=== PATIENT | female | born 1960 | race African-American/Black ===

== ENCOUNTER 2017-06-23 17:18 | Inpatient (IN) | payer OTHER ==
[~2017-06-23] VITALS: Ht 154.9 cm; Wt 77.1 kg
--- NOTE | 2017-06-23 17:18 | NUR ---
Patient BIBA ACLS, transferred to bed 8. RN evaluating patient at bedside.
[2017-06-23 17:19] VITALS: BP 157/100
--- NOTE | 2017-06-23 17:20 | NUR ---
57 /M BIBA FROM HOME C/O RIGHT SIDED CHEST PAIN AND TOE PAIN X 1 WK; WORST X TODAY. HX OF HTN, ASTHMA.DENIES N/V/D; SKIN IS PINK/WARM/DRY; AAOX4 WITH EVEN AND STEADY GAIT; LUNGS CLEAR BL; PATIENT STATES PAIN OF 5/10 AT THIS TIME; VSS; PATIENT POSITIONED FOR COMFORT; HOB ELEVATED; BEDRAILS UP X2; BED DOWN. ER MD MADE AWARE OF PT STATUS.
[2017-06-23] MEDS ORDERED: AMLO10TA PO (17:25)
--- NOTE | 2017-06-23 17:34 | NUR ---
Patient being evaluated by DR MUSTAFA at bedside.
[2017-06-23] MEDS ORDERED: NITROGLYCERIN 2% 1 GM PKT TP ONE (17:50)
[2017-06-23] MEDS ORDERED: ASPIRIN 81 MG TAB.CHEW PO ONE (17:50)
[2017-06-23] MEDS ORDERED: KETOROLAC 30 MG/ML VIAL IVP ONE (17:50)
[2017-06-23] MEDS ORDERED: LORazepam 2 MG/ML VIAL IVP ONE (17:50)
--- NOTE | 2017-06-23 18:05 | NUR ---
head of academic technology at bedside.
--- NOTE | 2017-06-23 18:31 | NUR ---
X RAY AT BEDSIDE.
[2017-06-23 18:37] LABS: BASOPHILS # (AUTO) 0.3 K/uL (0.00-0.22); EOSINOPHILS # (AUTO) 0.1 K/uL (0-0.4)
[2017-06-23 18:41] LABS: BASOPHILS % (AUTO) 4.4 % (0.0-2.0); EOSINOPHILS % (AUTO) 0.9 % (0.0-4.0); HEMATOCRIT 43.9 % (36-48); HEMOGLOBIN 14.6 g/dL (12.0-16.0); LYMPHOCYTES # (AUTO) 2.8 K/uL (2.5-16.5); LYMPHOCYTES % (AUTO) 43.1 % (20.5-51.1); MEAN CORPUSCULAR HEMOGLOBIN 29 pg (27-31); MEAN CORPUSCULAR HGB CONC 33 g/dL (33-37); MEAN CORPUSCULAR VOLUME 87 fL (80-94); MONOCYTES # (AUTO) 0.4 K/uL (0.8-1.0); MONOCYTES % (AUTO) 6.8 % (1.7-9.3); NEUTROPHILS # (AUTO) 2.9 K/uL (1.8-7.7); NEUTROPHILS % (AUTO) 44.8 % (42.2-75.2); PLATELET COUNT (AUTO) 236 K/uL (140-450); RED BLOOD CELL COUNT(AUTO) 5.06 MIL/uL (4.20-5.40); RED CELL DISTRIBUTION WIDTH 12.4 % (11.6-13.7); WHITE BLOOD COUNT (AUTO) 6.5 K/uL (4.8-10.8)
[2017-06-23 18:44] LABS: ANION GAP 14.7 (8-16); CARBON DIOXIDE 23.5 mmol/L (21-32); POTASSIUM 3.2 mmol/L (3.5-5.1)
[2017-06-23 18:47] LABS: PROTHROMBIN TIME 10.3 secs (10.8-13.4)
[2017-06-23 18:50] LABS: ALBUMIN 3.5 g/dL (3.4-5.0); TOTAL BILIRUBIN 0.2 mg/dL (0.0-1.0)
--- NOTE | 2017-06-23 19:00 | NUR ---
RECEIVED REPORT FROM MORENITA RN, PT RESTING COMFORTABLY ON BED, NO ACUTE CHANGES AT THIS TIME, VSS, ALL NEEDS MET AT THIS TIME
[2017-06-23 20:35] LABS: BARBITURATE, URINE NEG. ng/ml (NEG <=200); BENZODIAZEPINE, URINE NEG. ng/mL (NEG <=200); CANNABINOID, URINE NEG. ng/mL (NEG <=50); COCAINE, URINE NEG. ng/mL (NEG <=300); OPIATE, URINE NEG. ng/mL (NEG <=2000); PHENCYCLIDINE SCREEN,URINE NEG. ng/mL (NEG <=25)
[2017-06-23] MEDS ORDERED: NACL 0.9% 500 ML IV ONE ×2 (20:35)
[2017-06-23] MEDS ORDERED: POTASSIUM CHLORIDE 10 MEQ TABER PO ONE (20:45)
[2017-06-23] MEDS ORDERED: CITA40TA13 PO (21:28)
[2017-06-23] MEDS ORDERED: OXYC40TE66 PO (21:28)
[2017-06-23] MEDS ORDERED: QUET100T PO (21:28)
--- NOTE | 2017-06-23 22:00 | NUR ---
Patient will be admitted to care of [facility]. Admited to TELE. Will go to room 112B. Belongings list completed. Report to NYDIA JOHNSON. VSS, PT STABLE, TRANSPORTED WITH CARDIAC MONITORING, IV BRUNO LEWIS.
[2017-06-23] MEDS ORDERED: MORPHINE SULFATE 2 MG/ML SYR IVP PRN (22:05)
[2017-06-23] MEDS ORDERED: HYDROcodone/APAP 10/325 MG 1 TAB TAB PO PRN (22:05)
[2017-06-23] MEDS ORDERED: ACETAMINOPHEN EXTRA STRENGTH 500 MG TAB PO PRN (22:05)
--- NOTE | 2017-06-23 22:05 | NUR ---
PT ARRIVED ON UNIT VIA GURNEY ACCOMPANIED BY SEED PRODUCTION FIELD SUPERVISOR AND VET TECH. PT IS A/OX4 ON ROOM AIR. SHE IS AMBULATORY AND SKIN IS INTACT. PT HAS A 20G IV TO THE LEFT AC WITH NS@100ML/HR. CONNECTED PT TO TELE MONITOR AND ORIENTED PT TO ROOM, RESTROOM, LIGHTS, CALL LIGHT. UPDATED BOARD. DISCUSSED PLAN OF CARE WITH PT, PT VERBALIZED UNDERSTANDING. PT IN STABLE CONDITION, VITAL SIGNS WNL, NO SIGNS OF DISTRESS NOTED. BED IN LOW POSITION, CALL LIGHT WITHIN REACH. WILL CONTINUE TO MONITOR.
[2017-06-23] MEDS ORDERED: LORazepam 1 MG TAB PO PRN (22:10)
[2017-06-23] MEDS ORDERED: cloNIDine 0.1 MG TAB PO PRN (22:10)
[2017-06-23] MEDS ORDERED: POTASSIUM CHLORIDE 20% 40 MEQ/15 ML UDC PO PRN (22:15)
[2017-06-23 22:33] VITALS: BP 123/73
[2017-06-23] MEDS ORDERED: PNEUMOCOCCAL VACCINE 23 MCG/0.5 ML VIAL IMVAC PRN (22:55)
[2017-06-23] MEDS ORDERED: INFLUENZA VIRUS VACCINE QUAD 0.5 ML SYR IMVAC PRN (22:55)
[2017-06-24] VITALS: BP 122/75
--- NOTE | 2017-06-24 00:35 | NUR ---
ADMINISTERED POTASSIUM PT TOLERATED WELL. PT IN STABLE CONDITION, VITAL SIGNS WNL, NO SIGNS OF DISTRESS NOTED. BED IN LOW POSITION, CALL LIGHT WITHIN REACH. WILL CONTINUE TO MONITOR.
[2017-06-24 04:00] VITALS: BP 114/68
--- NOTE | 2017-06-24 07:10 | NUR ---
ENDORSED PT TO DAY SHIFT RN FOR CONTINUITY OF CARE. PT IN STABLE CONDITION.
--- NOTE | 2017-06-24 07:30 | NUR ---
REPORT RECEIVED FROM SOURCING COORDINATOR, PT SLEEPING QUIETLY IN NAD, RESP EVEN UNLABORED, SKIN WARM DRY COLOR WNL FOR RACE, PT AROUSES TO VOICE, NO C/O PAIN OR DISCOMFORT, PLAN OF CARE REVIEWED, CALL MORIRS WITHIN REACH, SIDE RAILS UP, WILL CONTINUE TO MONITOR.
[2017-06-24 08:00] VITALS: BP 115/70
--- NOTE | 2017-06-24 08:55 | NUR ---
PATIENT HAS BEEN SCREENED AND CATEGORIZED MODERATE NUTRITION RISK. PATIENT WILL BE SEEN WITHIN 3-5 DAYS OF ADMISSION. 06/26/17-06/28/[address]
[2017-06-24] MEDS ORDERED: amLODIPine 5 MG TAB PO SCH (09:00)
[2017-06-24] MEDS ORDERED: oxyCODONE 40 MG TABER PO SCH (09:00)
[2017-06-24] MEDS ORDERED: CITALOPRAM 20 MG TAB PO SCH (09:00)
[2017-06-24] MEDS ORDERED: QUEtiapine FUMARATE 100 MG TAB PO SCH (09:00)
--- NOTE | 2017-06-24 09:13 | NUR ---
DUE MEDS GIVEN, PT TEGAN WELL, NO C/O PAIN OR DISCOMFORT, PT DENIES ANY IMMEDIATE NEEDS, WILL CONTINUE TO MONITOR.
[2017-06-24 12:00] VITALS: BP 112/76
[2017-06-24] MEDS ORDERED: NAPR500T1 PO (13:19)
--- NOTE | 2017-06-24 13:30 | NUR ---
PATIENT IS ASLEEP COMFORTABLE. RESPIRATION IS EVEN, UNLABOR, NO DISTRESS WAS NOTED. CALL LIGHT WITHIN REACH. WILL CONTINUE TO MONITOR.
--- NOTE | 2017-06-24 13:35 | NUR ---
CM NOTE INITIAL REVIEW FAXED TO [facility] [phone] MAXIMILIAN LATHAMA PH# [phone]
--- NOTE | 2017-06-24 14:15 | NUR ---
PATIENT WAS WHEELED OUT BY THE NEGATIVE TURNER WITH ALL HER BELONGINGS.
--- NOTE | 2017-06-24 15:28 | NUR ---
FLU VACCINE AND PNEUMONIA VACCINE GIVEN TO BILAT DELTOID, PT TEGAN WELL, IMMUNIZATION INFORMATION GIVEN WILL MONITOR
--- NOTE | 2017-06-24 15:30 | NUR ---
DISCHARGED INSTRUCTION WAS GIVEN. PATIENT VERBALIZED UNDERSTANDING. VS WAS TAKEN. PATIENT IS STABLE, NO DISTRESS NOTED. IV D/MURALI WITH CATHETER TIP INTACT. BUS PASS WAS GIVEN TO THE PATIENT.
[2017-06-24 16:00] VITALS: BP 120/67
== END 2017-06-24 16:25 | disposition home or self-care (01) | DRG 203 ==
LOC: MED 17:18 → MTU 22:04
PROVIDERS: ADMIT Hospitalist; ATTEND Hospitalist
PROC: 3E0234Z Introduction of Serum, Toxoid and Vaccine into Muscle, Percutaneous Approach (ICD-10-PCS; principal; 2017-06-23)
PROC: 3E0234Z Introduction of Serum, Toxoid and Vaccine into Muscle, Percutaneous Approach (ICD-10-PCS; 2017-06-23)
DX: M94.0 Chondrocostal junction syndrome [Tietze] (principal); F20.9 Schizophrenia, unspecified; E87.6 Hypokalemia; J45.909 Unspecified asthma, uncomplicated; M79.7 Fibromyalgia; M19.90 Unspecified osteoarthritis, unspecified site; G43.909 Migraine, unspecified, not intractable, without status migrainosus; M54.5 Low back pain; F17.210 Nicotine dependence, cigarettes, uncomplicated; Z23 Encounter for immunization; Z98.891 History of uterine scar from previous surgery; Z88.8 Allergy status to other drugs, medicaments and biological substances
CPT/HCPCS: 36415; 71010; 80053; 80305; 83880; 84484; 85025; 85610; 85730; 87081; 90658; 90732; 93005; 96361; 96374; 96375; 99285; J1885; J2060; J7030; Q0092